=== PATIENT | female | born 1990 | race Caucasian/White ===

== ENCOUNTER 2016-09-23 20:55 | Emergency (ER) | payer BC ==
--- NOTE | ~2016-09-23 | ER ---
PATIENT'S NAME: ROBBY BRADY [facility] AGE: 26 Y [address] ROOM: [place] [address] LOCATION: [facility] ADMIT DATE: 09/23/2016 ER/Outpatient Report DISCHARGE DATE: 09/23/2016 FAMILY PHYSICIAN: Houston Nath MD ATTENDING PHYSICIAN: Jong Yung Admission date and time documented in the medical record. I saw the patient at 2110 hours. CHIEF COMPLAINT: Nausea and vomiting. HISTORY OF PRESENT ILLNESS: The patient is a 26-year-old female, who about 5 minutes prior to admission in the emergency room had an episode of retching. She is still a little bit nauseated, but has had no vomiting or retching since. She had some blood in her vomitus after retching. No diarrhea, has had some chills, but no documented fever. No urinary symptoms. No lightheadedness, dizziness, syncope, or near syncope. No headache, eyes, ears, nose, throat, neck, or spine pain. No fall or trauma. No recent cold, cough, flus, fever, or sweats. Did have some chills. No chest pain or shortness of breath. No abdominal pain. No joint or muscle swelling, redness, or pain. No skin eruptions or rash. No history of neuro changes, psych issues, or endocrine problems. HOME MEDICATIONS: See attached medication list. ALLERGIES: NONE. SOCIAL HISTORY: Nonsmoker x1 month, nondrinker. SIGNIFICANT PAST MEDICAL HISTORY: Remote tobacco abuse and iron deficiency. OPERATIONS: Spinal fusion. ROS: All systems reviewed by me are negative with the exception of those discussed in the history of present illness. PHYSICAL EXAMINATION: PATIENT'S NAME: ROBBY BRADY [facility] AGE: 26 Y [address] ROOM: [place] [address] LOCATION: [facility] ADMIT DATE: 09/23/2016 ER/Outpatient Report DISCHARGE DATE: 09/23/2016 FAMILY PHYSICIAN: Houston Nath MD ATTENDING PHYSICIAN: Jong Yung VITAL SIGNS: Temperature 97.9, tympanic; pulse 89; respirations 20; blood pressure 133/83; O2 saturation on room air is 100%. HEENT: Head: Normocephalic. Eyes: Clear. Ears: Clear TMs bilaterally. Nose and Throat: Clear. Mucous membranes are moist. NECK: Negative. SPINE: Negative. LUNGS: Clear. Good air flow. No rales, rhonchi, or wheezes. HEART: Regular. Pulses are palpable. ABDOMEN: Soft, nondistended, nontender, obese. No organomegaly or abnormal masses palpable. No CVA tenderness. Bowel tones are present. EXTREMITIES: Without peripheral edema, cyanosis, or deformity. NEUROVASCULAR: Intact. SKIN: Clear. No skin eruptions or rash. IMPRESSION: Nausea and vomiting, one episode and severe retching, did have some blood in her vomitus. PLAN: The patient was given Zofran 4 mg ODT sublingual in the emergency department. Dismissed home. Observation. Activity as tolerated. Clear liquid diet for 24 hours and advance diet as tolerated. Continue present home medications and care. Zofran 4 mg ODT as needed for nausea, vomiting; Prevacid 30 mg once a day, #14 with 1 refill. Follow up with personal physician as needed. I told the patient that if she continues to have vomiting and continues to have blood in her vomitus, that she needs to talk with her personal physician and get scheduled through her personal physician with a senior product development manager for upper endoscopy. Discussed my findings and recommendations with the patient, she understands. MD NIURKA WASHINGTON/noel /[id number] d: 09/24/16 0248 t: 09/26/16 0607, OUTPATIENT REPORT
== END 2016-09-23 21:30 | disposition disaster alternative care site (69) ==
LOC: GMED 20:55
DX: K92.0 Hematemesis (principal); Z98.1 Arthrodesis status; Z79.899 Other long term (current) drug therapy

== ENCOUNTER 2016-12-25 02:53 | Emergency (ER) | payer OTHER ==
--- NOTE | ~2016-12-25 | ER ---
PATIENT'S NAME: ROBBY BRADY [facility] AGE: 26 Y [address] ROOM: [place] [address] LOCATION: [facility] ADMIT DATE: 12/25/2016 ER/Outpatient Report DISCHARGE DATE: FAMILY PHYSICIAN: Houston Nath MD ATTENDING PHYSICIAN: Pernell Reyna CHIEF COMPLAINT: Left middle finger injury. HISTORY OF PRESENT ILLNESS: The patient was at work at [employer] this morning, using a donut machine, when she got the tip of her middle finger trapped in the machine. She states it was only stuck for perhaps up to a minute and a half, she is not really sure how long. She had significant pain, ice was placed, and she was brought here by her boss for further evaluation. The accident happened just prior to arrival. She denies any other acute issues. She does have some pain throughout her hand, but the finger tip is her concern. No other known issues at this time. PAST MEDICAL HISTORY: Documented on the record and reviewed by me. SOCIAL HISTORY: Documented on the record and reviewed by me. MEDICATIONS: Documented on the record and reviewed by me. ALLERGIES: DOCUMENTED ON THE RECORD AND REVIEWED BY ME. REVIEW OF SYSTEMS: All systems reviewed and negative except as noted in the HPI. PHYSICAL EXAMINATION: VITAL SIGNS: Blood pressure 153/93, pulse 77, respiratory rate 16, temperature 97.4, and SpO2 is 100% on room air. Pain is 8 to 9 out of 10. GENERAL: An age-appropriate female, in obvious pain, no apparent distress, sitting upright on exam table. NEUROLOGIC: Awake and alert. GCS 15. No focal deficits. No asymmetry. HEENT: Normocephalic, atraumatic. Eyes, PERRL. Oropharynx, clear. NECK: Supple. Trachea is midline. CHEST/HEART: Even unlabored respirations. Heart has regular rate. ABDOMEN: Benign. BACK: Deferred. PATIENT'S NAME: ROBBY BRADY [facility] AGE: 26 Y [address] ROOM: [place] [address] LOCATION: [facility] ADMIT DATE: 12/25/2016 ER/Outpatient Report DISCHARGE DATE: FAMILY PHYSICIAN: Houston Ntah MD ATTENDING PHYSICIAN: Pernell Reyna EXTREMITIES: Grossly unremarkable except for the left distal phalanx of the left middle finger. There is notable for a line of demarcation, approximately 1 cm, from the tip on the palmar aspect over the finger pad with some petechial hemorrhages noted. There is a small subungual hematoma totaling 15- 20% on the nail bed located centrally. No obvious deformities. No bleeding. SKIN: Otherwise intact. LABORATORY DATA AND X-RAYS: Plain films did not reveal any fractures. IMPRESSION: Injury to the distal tuft of the left middle finger. EMERGENCY DEPARTMENT COURSE: The patient was seen and evaluated. X-rays were obtained. She was given Tylenol for pain. She felt much better after some reassurance. The pain was beginning to improve significantly. I do not think she requires drainage of the subungual hematoma at this time. Recommend close followup if not improving. Recommend anti-inflammatories and ice as needed. Fingertip cot for comfort. Return if worse or see PCP as needed. All questions were answered. The patient was discharged in good condition. MD IRVIN CRAIN/agata /[id number] d: 12/25/16 0448 t: 12/29/16 1237, OUTPATIENT REPORT
== END 2016-12-25 03:26 | disposition disaster alternative care site (69) ==
LOC: GACC 02:53
DX: S60.132A Contusion of left middle finger with damage to nail, initial encounter (principal); F17.210 Nicotine dependence, cigarettes, uncomplicated; Z98.890 Other specified postprocedural states; W31.89XA Contact with other specified machinery, initial encounter; Y93.89 Activity, other specified; Y92.89 Other specified places as the place of occurrence of the external cause; Y99.0 Civilian activity done for income or pay